=== PATIENT | male | born 1960 | race Caucasian/White ===

== ENCOUNTER 2020-05-16 12:28 | Emergency (ER) | payer OTHER ==
[~2020-05-16] VITALS: Ht 175.3 cm; Wt 79.5 kg
[2020-05-16] MEDS ORDERED: OXYMETAZOLINE 0.05% NASAL SPRAY 30ML BOTTLE. NS ONE (14:30)
--- NOTE | 2020-05-16 14:43 | PHYS DOC ---
Past Medical History Past Medical History: High Cholesterol, NM Past Surgical History: Other Additional Past Surgical Histo: CARDIAC STENT, SHOULDER REPLACEMENT Smoking Status: Current Every Day Smoker Alcohol Use: None General Adult EDM: Chief Complaint: NOSEBLEED HPI: HPI: 60-year-old male presents emergency department for nasal bleeding. He had a COVID test today because he had some positive COVID patients at work and was exposed. Since then he has had some bleeding. He is not on blood thinners but does take a baby aspirin. He denies any nasal pain. He denies nausea vomiting fevers or chills. He does not have any other symptoms. Onset today. Location left nare. Duration constant. Alleviated by pressure. Review of systems negative for chest pain vomiting fevers chills. All other review of systems negative. ED course: 60-year-old male with a nosebleed. Here the patient's been able to control the bleeding with pressure. On reexamination the patient has no nasal bleeding. We will have the patient follow-up with his PCP in a day or 2. We will discharge him home with some Afrin that he can use if his bleeding recurs. He is return to the emergency department if his bleeding is uncontrolled. Heart Score: Risk Factors: Risk Factors: DM, Current or recent (<one month) smoker, HTN, HLP, family history of CAD, obesity. Risk Scores: Score 0 - 3: 2.5% MACE over next 6 weeks - Discharge Home Score 4 - 6: 20.3% MACE over next 6 weeks - Admit for Clinical Observation Score 7 - 10: 72.7% MACE over next 6 weeks - Early Invasive Strategies Current Medications: Current Medications Medications (Trade) Dose Ordered Sig/[facility] Start Time Stop Time Status Last Admin Dose Admin Oxymetazoline HCl (Afrin) 2 spray 1X ONCE 05/16/20 14:30 05/16/20 14:31 DC Allergies: Allergies: Allergies Coded Allergies Type Severity Reaction Last Updated Verified latex Allergy Intermediate 05/16/20 Yes morphine Allergy Intermediate 05/16/20 Yes Physical Exam: PE: Constitutional: Well developed, well nourished, no acute distress, non-toxic appearance. [] HENT: Normocephalic, atraumatic, bilateral external ears normal, oropharynx moist, no oral exudates, nose normal. [] Eyes: PERRLA, EOMI, conjunctiva normal, no discharge. [] Neck: Normal range of motion, no tenderness, supple, no stridor. [] Cardiovascular:Heart rate regular rhythm, no murmur [] Lungs & Thorax: Bilateral breath sounds clear to auscultation [] Abdomen: Bowel sounds normal, soft, no tenderness, no masses, no pulsatile masses. [] Skin: Warm, dry, no erythema, no rash. [] Back: No tenderness, no CVA tenderness. [] Extremities: No tenderness, no cyanosis, no clubbing, ROM intact, no edema. [] Neurologic: Alert and oriented X 3, normal motor function, normal sensory function, no focal deficits noted. [] Psychologic: Affect normal, judgement normal, mood normal. [] Current Patient Data: Vital Signs: Vital Signs Date Time Temp Pulse Resp B/P (MAP) Pulse Ox O2 Delivery O2 Flow Rate FiO2 05/16/20 13:44 98.1 77 18 189/95 (126) 94 Room Air 98.1 EKG: EKG: [] Radiology/Procedures: Radiology/Procedures: [] Course & Med Decision Making: Course & Med Decision Making Pertinent Labs and Imaging studies reviewed. (See chart for details) [] Dragon Disclaimer: eGames Disclaimer: This electronic medical record was generated, in whole or in part, using a voice recognition dictation system. Departure Departure Impression: Primary Impression: Nosebleed Disposition: 01 HOME, SELF-CARE Condition: STABLE Referrals: UNKNOWN PCP NAME (PCP) Patient Instructions: Nosebleed Additional Instructions: Follow-up with your primary physician in 1 to 2 days. Use Afrin if your bleeding returns. Put pressure on the nose as well. If bleeding is uncontrolled return to the emergency department or call 911. return to the emergency department if you have any new or concerning findings. Justicifation of Admission Dx: Justifications for Admission: Justification of Admission Dx: N/A AMINATA PAUL MD May 16, 2020 14:43
[2020-05-16 15:08] VITALS: BP 146/80
== END 2020-05-16 15:26 | disposition home or self-care (01) ==
LOC: ER 12:28
DX: R04.0 Epistaxis (principal); E78.00 Pure hypercholesterolemia, unspecified; I25.2 Old myocardial infarction; F17.200 Nicotine dependence, unspecified, uncomplicated; Z98.890 Other specified postprocedural states; Z91.040 Latex allergy status; Z88.6 Allergy status to analgesic agent
CPT/HCPCS: 99282